=== PATIENT | female | born 2000 | race Caucasian/White ===

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

== ENCOUNTER 2021-01-16 08:21 | Emergency (ER) | payer BC, MEDICAID ==
[2021-01-16] MEDS ORDERED: Sodium Chloride 0.9% 2.5 ML Syringe FLUSH PRN (08:45)
[2021-01-16] MEDS ORDERED: Sodium Chloride 0.9% 10 ML Syringe FLUSH PRN (08:45)
[2021-01-16] MEDS ORDERED: Lactated Ringers 1,000 ML IV ONE (08:46)
--- NOTE | 2021-01-16 08:47 | EDM.PDOC ---
ED HPI GENERAL MEDICAL PROBLEM - General Chief Complaint: General Stated Complaint: POSSIBLE SEIZURE Time Seen by Provider: 01/16/21 08:26 - History of Present Illness INITIAL COMMENTS - FREE TEXT/NARRATIVE: 20-year-old female with a very medically complex history including premature physiologic aging, seizure disorder, and other medical problems who is presenting with lethargy. Mom reports that over the last few weeks they have noticed a decline in her behavior she started to develop significant sundowning. A couple weeks ago the patient had to be restarted on Resporal in the evenings to help with worsening sleep wake cycle reversal and disorientation agitation and aggression. She typically is at her best in the morning. Last week she was able to go to high school 3 days. Mom also notes that her gait has worsened substantially over the last few weeks. Her baseline mental function is that of approximately a 10-year-old she can speak if she chooses to she can also sign. Mom noticed over this past weekend that she has not been at her mental baseline she has been hard to keep awake and she has been more lethargic than normal. No fevers no vomiting. Patient has not had a bowel movement in the last 2 days but that is not unusual for her she does often go 48 to 72 hours between bowel movements. She is on a stool softener for this. - Related Data Allergies Allergy/AdvReac Type Severity Reaction Status Date / Time adhesive Allergy Rash Verified 01/16/21 08:33 Home Meds: Home Meds ALPRAZolam [Xanax] 0.05 mg PO ASDIRECTED PRN 07/15/15 [History] guanFACINE HCl [Intuniv] 2 mg PO DAILY 07/15/15 [History] lamoTRIgine [Lamictal] 350 mg PO BID 07/15/15 [History] EPINEPHrine [Epipen 2-Dayron] 1 injection INJECT ASDIRECTED PRN 09/20/15 [History] Gamma-Aminobutyric Acid [Aminobutyric Acid] 12 gram SQ ASDIRECTED 09/20/15 [History] diazePAM [Diastat Rectal Gel] 5 mg RECTAL ASDIRECTED PRN 09/20/15 [History] metFORMIN HCl [Metformin HCl] 1,000 mg PO BID 09/20/15 [History] QUEtiapine [SEROquel] 150 mg PO BEDTIME 02/01/16 [History] Multivit,Calc,Mins/Iron/Folic [Women's Daily Formula Caplet] 2 each PO DAILY 09/21/16 [History] PARoxetine HCL [Paroxetine HCl] 40 mg PO DAILY 09/21/16 [History] Ubidecarenone [COQ-10] 30 mg PO DAILY 09/21/16 [History] Norgestimate-Ethinyl Estradiol [Ortho Tri-Cyclen Lo Tablet] 1 tab PO DAILY 05/15/18 [History] LORazepam [Ativan] 1 mg PO ASDIRECTED PRN 09/21/20 [History] Lubiprostone [Amitiza] 8 mg PO BID 09/21/20 [History] Gabapentin [Neurontin] 300 mg PO TID 01/16/21 [History] risperiDONE [Risperdal] 2 mg PO DAILY 01/16/21 [History] Past Medical History HEENT History: Reports: Other (See Below) Other HEENT History: eye surgery 2 times Cardiovascular History: Reports: None Respiratory History: Reports: Asthma Other Respiratory History: allergy induced asthma Gastrointestinal History: Reports: Chronic Constipation, GERD Other Gastrointestinal History: Fissures Genitourinary History: Reports: Other (See Below) Other Genitourinary History: bilateral ovarian surgery [employer] History: Reports: Other (See Below) Other [employer] History: [place] of ovaries, oophorectomy Musculoskeletal History: Reports: Other (See Below) Other Musculoskeletal History: mulitple lower leg surgery Neurological History: Reports: Seizure, Other (See Below) Other Neuro History: focal epilepsy Psychiatric History: Reports: ADHD, Anxiety, Autism, Bipolar, Other (See Below) Other Psychiatric History: "Cannot diagnose, but suspect depression" per mother Jojo Endocrine/Metabolic History: Reports: Other (See Below) Other Endocrine/Metabolic History: Mother reports "Metformin for Hormone treatment" Hematologic History: Reports: None Immunologic History: Reports: Immunosuppression, Other (See Below) Other Immunologic History: Gammagard injection weekly Sundays Oncologic (Cancer) History: Reports: None Dermatologic History: Reports: None - Infectious Disease History Infectious Disease History: Reports: None - Past Surgical History HEENT Surgical History: Reports: None Cardiovascular Surgical History: Reports: None Respiratory Surgical History: Reports: None GI Surgical History: Reports: Appendectomy, Other (See Below) Other GI Surgeries/Procedures: exploratory sugery Female Surgical History: Reports: Other (See Below) Other Female Surgeries/Procedures: bilateral ovaries removed, ovarian cyst removal at Endocrine Surgical History: Reports: None Neurological Surgical History: Reports: None Musculoskeletal Surgical History: Reports: Other (See Below) Other Musculoskeletal Surgeries/Procedures:: plate i[ins removed from right and plate in hip and 5-6 screws at knee on left, bob of the patella on bilat knees Oncologic Surgical History: Reports: None Dermatological Surgical History: Reports: None Social & Family History - Family History Family Medical History: No Pertinent Family History - Tobacco Use Tobacco Use Status *Q: Never Tobacco User - Caffeine Use Caffeine Use: Reports: None - Recreational Drug Use Recreational Drug Use: No ED ROS GENERAL - Review of Systems Review Of Systems: See Below Free Text/Narrative/Comment: General: No fever. Skin: No rash. Eyes: No vision problems. Neck: No neck stiffness. Respiratory: No cough Gastrointestinal: No nausea, vomiting or abdominal pain. Urinary: No hematuria Musculoskeletal: No myalgias/arthralgias. Neurologic: Per HPI ED EXAM, GENERAL - Physical Exam Exam: See Below Free Text/Narrative:: General Appearance: No acute distress, appears comfortable HEENT: atraumatic, sclera anicteric, mucous membranes very dry Neck: Normal range of motion Chest and Lungs: Bilateral breath sounds, clear to auscultation Cardiovascular: Tachycardic rate regular rhythm intact distal perfusion Abdomen: Soft, non-tender Musculoskeletal: No edema or tenderness, bilateral leg splints in place Neurologic: Patient appears tired but awake she will not speak but appears to understand me she signed yes when asked if I could listen to her heart and lungs. She followed commands to lay back in the bed for an abdominal exam. She moves all 4 extremities she is looking around the room. pt was able to transfer to the bed from the chair with minimal assistance, gait testing titus. Psychiatric: cooperative Course - Vital Signs Last Recorded V/S: Last Vital Signs Temp 97.6 F 01/16/21 08:33 Pulse 115 H 01/16/21 09:59 Resp 30 H 01/16/21 09:28 BP 141/85 H 01/16/21 09:28 Pulse Ox 95 01/16/21 09:28 - Orders/Labs/Meds Orders: Active Orders 24 hr Category Date Time Status Heparin Sodium [Heparin Lock Flush 100 Units/ML] Med 01/16/21 09:21 Active 500 units FLUSH ASDIRECTED PRN Sodium Chloride 0.9% [Saline Flush] Med 01/16/21 08:45 Active 10 ml FLUSH ASDIRECTED PRN Sodium Chloride 0.9% [Saline Flush] Med 01/16/21 08:45 Active 2.5 ml FLUSH ASDIRECTED PRN Saline Lock Insert [OM.PC] Stat Oth 01/16/21 08:45 Ordered Medication Orders Heparin Sodium (Porcine) (Heparin Lock Flush 100 Units/Ml) 500 units FLUSH ASDIRECTED PRN PRN Reason: Heparin Lock Last Admin: 01/16/21 09:47 Dose: 500 units Documented by: [id number] Sodium Chloride (Saline Flush) 10 ml FLUSH ASDIRECTED PRN PRN Reason: Keep Vein Open Last Admin: 01/16/21 09:09 Dose: 10 ml Documented by: [email or web address] Sodium Chloride (Saline Flush) 2.5 ml FLUSH ASDIRECTED PRN PRN Reason: Keep Vein Open Last Admin: 01/16/21 09:09 Dose: 2.5 ml Documented by: [email or web address] Labs: Laboratory Tests 01/16/21 01/16/21 01/16/21 Range/Units 09:05 09:05 09:05 WBC 9.62 (4.0-11.0) K/uL RBC 4.54 (4.30-5.90) M/uL Hgb 13.3 (12.0-16.0) g/dL Hct 40.8 (36.0-46.0) % MCV 89.9 (80.0-98.0) fL MCH 29.3 (27.0-32.0) pg MCHC 32.6 (31.0-37.0) g/dL RDW Std Deviation 47.2 (28.0-62.0) fl RDW Coeff of Chen[place] 15 (11.0-15.0) % Plt Count 330 (150-400) K/uL MPV 8.30 (7.40-12.00) fL Neut % (Auto) 78.0 (48.0-80.0) % Lymph % (Auto) 16.3 (16.0-40.0) % [place] % (Auto) 5.0 (0.0-15.0) % Eos % (Auto) 0.5 (0.0-7.0) % Baso % (Auto) 0.2 (0.0-1.5) % Neut # (Auto) 7.5 H (1.4-5.7) K/uL Lymph # (Auto) 1.6 (0.6-2.4) K/uL [place] # (Auto) 0.5 (0.0-0.8) K/uL Eos # (Auto) 0.1 (0.0-0.7) K/uL Baso # (Auto) 0.0 (0.0-0.1) K/uL Nucleated RBC % 0.0 /100WBC Nucleated RBCs # 0 K/uL Lactate 1.8 (0.20-2.00) mmol/L Sodium 138 (136-145) mmol/L Potassium 4.4 (3.5-5.1) mmol/L Chloride 100 (98-107) mmol/L Carbon Dioxide 27.1 (21.0-32.0) mmol/L BUN 16 (7.0-18.0) mg/dL Creatinine 0.8 (0.6-1.0) mg/dL Est Cr Clr Drug Dosing 81.24 mL/min Estimated GFR (MDRD) > 60.0 ml/min Glucose 91 (74-106) mg/dL Calcium 9.5 (8.5-10.1) mg/dL Magnesium 2.0 (1.8-2.4) mg/dL Total Bilirubin 0.1 L (0.2-1.0) mg/dL AST 16 (15-37) IU/L ALT 21 (14-63) IU/L Alkaline Phosphatase 101 (46-116) U/L Total Protein 7.8 (6.4-8.2) g/dL Albumin 3.0 L (3.4-5.0) g/dL Globulin 4.8 H (2.6-4.0) g/dL Albumin/Globulin Ratio 0.6 L (0.9-1.6) Urine Color Urine Appearance Urine pH (5.0-8.0) Ur Specific [place] (1.001-1.035) Urine Protein (NEGATIVE) mg/dL Urine Glucose (UA) (NEGATIVE) mg/dL Urine Ketones (NEGATIVE) mg/dL Urine Occult Blood (NEGATIVE) Urine Nitrite (NEGATIVE) Urine Bilirubin (NEGATIVE) Urine Urobilinogen (<2.0) EU/dL Ur Leukocyte Esterase (NEGATIVE) Urine RBC (0-2/HPF) Urine WBC (0-5/HPF) Ur Epithelial Cells (NONE-FEW) Urine Bacteria (NEGATIVE) Urine Mucus (NONE-MOD) 01/16/21 Range/Units 09:16 WBC (4.0-11.0) K/uL RBC (4.30-5.90) M/uL Hgb (12.0-16.0) g/dL Hct (36.0-46.0) % MCV (80.0-98.0) fL MCH (27.0-32.0) pg MCHC (31.0-37.0) g/dL RDW Std Deviation (28.0-62.0) fl RDW Coeff of [place] (11.0-15.0) % Plt Count (150-400) K/uL MPV (7.40-12.00) fL Neut % (Auto) (48.0-80.0) % Lymph % (Auto) (16.0-40.0) % [place] % (Auto) (0.0-15.0) % Eos % (Auto) (0.0-7.0) % Baso % (Auto) (0.0-1.5) % Neut # (Auto) (1.4-5.7) K/uL Lymph # (Auto) (0.6-2.4) K/uL [place] # (Auto) (0.0-0.8) K/uL Eos # (Auto) (0.0-0.7) K/uL Baso # (Auto) (0.0-0.1) K/uL Nucleated RBC % /100WBC Nucleated RBCs # K/uL Lactate (0.20-2.00) mmol/L Sodium (136-145) mmol/L Potassium (3.5-5.1) mmol/L Chloride (98-107) mmol/L Carbon Dioxide (21.0-32.0) mmol/L BUN (7.0-18.0) mg/dL Creatinine (0.6-1.0) mg/dL Est Cr Clr Drug Dosing mL/min Estimated GFR (MDRD) ml/min Glucose (74-106) mg/dL Calcium (8.5-10.1) mg/dL Magnesium (1.8-2.4) mg/dL Total Bilirubin (0.2-1.0) mg/dL AST (15-37) IU/L ALT (14-63) IU/L Alkaline Phosphatase (46-116) U/L Total Protein (6.4-8.2) g/dL Albumin (3.4-5.0) g/dL Globulin (2.6-4.0) g/dL Albumin/Globulin Ratio (0.9-1.6) Urine Color YELLOW Urine Appearance CLEAR Urine pH 6.0 (5.0-8.0) Ur Specific [place] 1.025 (1.001-1.035) Urine Protein 100 H (NEGATIVE) mg/dL Urine Glucose (UA) NEGATIVE (NEGATIVE) mg/dL Urine Ketones NEGATIVE (NEGATIVE) mg/dL Urine Occult Blood LARGE H (NEGATIVE) Urine Nitrite NEGATIVE (NEGATIVE) Urine Bilirubin NEGATIVE (NEGATIVE) Urine Urobilinogen 0.2 (<2.0) EU/dL Ur Leukocyte Esterase NEGATIVE (NEGATIVE) Urine RBC 30-35 (0-2/HPF) Urine WBC 0-2 (0-5/HPF) Ur Epithelial Cells FEW (NONE-FEW) Urine Bacteria FEW (NEGATIVE) Urine Mucus LIGHT (NONE-MOD) Meds: Medications Generic Name Dose Route Start Last Admin Trade Name Ngoc PRN Reason Stop Dose Admin Heparin Sodium (Porcine) 500 units 01/16/21 09:21 01/16/21 09:47 Heparin Lock Flush 100 Units/Ml FLUSH 500 units ASDIRECTED PRN Administration Heparin Lock Sodium Chloride 10 ml 01/16/21 08:45 01/16/21 09:09 Saline Flush FLUSH 10 ml ASDIRECTED PRN Administration Keep Vein Open Sodium Chloride 2.5 ml 01/16/21 08:45 01/16/21 09:09 Saline Flush FLUSH 2.5 ml ASDIRECTED PRN Administration Keep Vein Open Discontinued Medications Generic Name Dose Route Start Last Admin Trade Name Ngoc PRN Reason Stop Dose Admin Lactated Ringer's 1,000 mls @ 999 mls/hr 01/16/21 08:46 01/16/21 09:09 Ringers, Lactated IV 01/16/21 09:46 500 mls/hr .BOLUS ONE Infusion Departure - Departure Time of Disposition: 11:06 Disposition: Home, Self-Care 01 Condition: Good Clinical Impression: Altered mental status, Dehydration - Discharge Information *PRESCRIPTION DRUG MONITORING PROGRAM REVIEWED*: Not Applicable *COPY OF PRESCRIPTION DRUG MONITORING REPORT IN PATIENT SARA: Not Applicable Instructions: Rehydration, Adult Referrals: Gogo Weller DO [Primary Care Provider] - Forms: ED Department Discharge Additional Instructions: As we discussed to the CT scan of Nancy's brain was normal. Her blood work was also reassuring she had a normal white blood cell count of 9 her blood chemistries were normal without signs of kidney dysfunction or electrolyte abnormality. That said I do think she is mildly dehydrated her heart rate improved with the 1 L of IV fluid here. She may benefit from another bag of IV fluids given slowly over the course of the day and so for this reason we are leaving her chest port accessed. I encourage you to follow-up with her and his primary care provider and neurologist and other specialists to continue the outpatient work-up to address her decline. If Nancy has a sudden change or develops any other new issues that concern you, you are always welcome and encouraged to return to the emergency room. The following information is given to patients seen in the emergency department who are being discharged to home. This information is to outline your options for follow-up care. We provide all patients seen in our emergency department with a follow-up referral. The need for follow-up, as well as the timing and circumstances, are variable depending upon the specifics of your emergency department visit. If you don't have a primary care physician on staff, we will provide you with a referral. We always advise you to contact your personal physician following an emergency department visit to inform them of the circumstance of the visit and for follow-up with them and/or the need for any referrals to a consulting specialist. The emergency department will also refer you to a specialist when appropriate. This referral assures that you have the opportunity for follow-up care with a specialist. All of these measure are taken in an effort to provide you with optimal care, which includes your follow-up. Under all circumstances we always encourage you to contact your private physician who remains a resource for coordinating your care. When calling for follow-up care, please make the office aware that this follow-up is from your recent emergency room visit. If for any reason you are refused follow-up, please contact the [facility] Emergency Department at and asked to speak to the emergency department charge nurse. Sepsis Event Note (ED) - Evaluation Sepsis Screening Result: No Definite Risk - Focused Exam Vital Signs: Vital Signs Temp Pulse Resp BP Pulse Ox 01/16/21 09:59 115 H 01/16/21 09:28 122 H 30 H 141/85 H 95 01/16/21 08:33 97.6 F 138 H 18 139/87 98 - My Orders Last 24 Hours: My Active Orders 01/16/21 08:45 Sodium Chloride 0.9% [Saline Flush] 10 ml FLUSH ASDIRECTED PRN Sodium Chloride 0.9% [Saline Flush] 2.5 ml FLUSH ASDIRECTED PRN Saline Lock Insert [OM.PC] Stat 01/16/21 09:21 Heparin Sodium [Heparin Lock Flush 100 Units/ML] 500 units FLUSH ASDIRECTED PRN - Assessment/Plan Last 24 Hours: My Active Orders 01/16/21 08:45 Sodium Chloride 0.9% [Saline Flush] 10 ml FLUSH ASDIRECTED PRN Sodium Chloride 0.9% [Saline Flush] 2.5 ml FLUSH ASDIRECTED PRN Saline Lock Insert [OM.PC] Stat 01/16/21 09:21 Heparin Sodium [Heparin Lock Flush 100 Units/ML] 500 units FLUSH ASDIRECTED PRN Assessment:: Medically complex 20-year-old female presenting with lethargy. Multiple etiologies need to be considered. Patient is on a number of potentially sedating medications. However none of these changes are brand-new. Patient is somewhat tachycardic she appears dehydrated electrolyte disturbance is possible renal insufficiency is possible sepsis is possible and screening lactate is been ordered. Occult infective process certainly needs to be considered including UTI and cath UA will be obtained. Chest x-ray as well to evaluate for occult infiltrate. Patient had a normal ammonia and normal TSH on lab work done on January 05 I would not repeat those at this time. But CBC CMP urinalysis and lactate ordered without blood cultures if there is any sign of infection. No vomiting abdominal exam very benign I do not think imaging of her abdomen pelvis is necessary at this point. More frequent absence seizure's is certainly a consideration but there is been no witnessed tonic-clonic activity per mom. IV fluid has been ordered given her tachycardia and clinical dehydration. Patient is tachycardic she has dry mucous membranes these are concerning for dehydration and so IV fluid hydration has been ordered. 1000: HR improving with IVF currently around 115. Labs are good, now UTI, stable protein at 100, WBC normal, renal function and electrolytes normal. Given this lack of cause for AMS and after discussion with patient's mother will proceed with head CT. 1100: Patient's head CT is normal. Patient's heart rate and blood pressure are normal. Is a very minimal tachycardia she may have some very mild ongoing dehydration. I do long conversation with the patient's mother regarding disposition. She has all of the supplies to hydrate the patient at home. At this point I do not have a clinical concern for acute infective process or other acute medical emergency. This could be the natural progression of her disease or the could be another more subspecialty related process. That said given her normal lab results the reassuring vital signs I do not think admission would provide much of a benefit. Patient's mom is comfortable taking the patient home we will leave the port accessed so that she can continue hydration at home I think this is safe and appropriate. She will contact her patient's primary care provider as well as her neurologist and they will continue the outpatient work- up which has been ongoing. I reinforced that should the patient's mother become concerned or any other new concerns develop she is always welcome to return to the ER and she expresses understanding.
[2021-01-16 09:45] LABS: BLOOD UREA NITROGEN,BUN 16 mg/dL (7.0-18.0); CARBON DIOXIDE,CO2 27.1 mmol/L (21.0-32.0); CHLORIDE,CL 100 mmol/L (98-107); GLUCOSE RANDOM 91 mg/dL (74-106); POTASSIUM,K 4.4 mmol/L (3.5-5.1); SODIUM,NA 138 mmol/L (136-145)
--- NOTE | 2021-01-16 09:47 | CR ---
HISTORY: Shortness of breath. COMPARISON: 12/08/2019. TECHNIQUE: Chest one-view portable. FINDINGS: There is a left subclavian Port-A-Cath, with its tip in the distal SVC. Low lung volumes. There is no acute airspace disease. There is no pneumothorax. The central airway is normal. The osseous structures are intact. IMPRESSION: No acute airspace disease. Dictated by Mian Combs MD @ Jan 16 2021 9:44AM Signed by Dr. Mian Combs @ Jan 16 2021 9:46AM
--- NOTE | 2021-01-16 10:44 | CT ---
Indication: SEIZURES. Autistic. AMS Technique: CT of the head without contrast. Coronal and sagittal reformats. Bone and soft tissue windows. Comparison: No prior studies available for comparison at this institution. Findings: No acute intracranial hemorrhage or extra-axial collection. No evidence of acute cortical infarction. No mass effect or midline shift. Normal cerebral volume. The ventricles are normal in size, shape and contour. There is normal manzano and white matter differentiation. The orbital contents are normal. No calvarial fractures. No lytic or sclerotic osseous lesions within the calvarium or skull base. Scalp and other imaged soft tissue structures are normal. Mastoid air cells are clear. Moderate mucosal thickening in the left sphenoid sinus. The nasal septum is deviated to the left. Impression: 1. No acute intracranial abnormality. 2. Moderate mucosal thickening in the left sphenoid sinus. Please note that all CT scans at this facility use dose modulation, iterative reconstruction, and/or weight-based dosing when appropriate to reduce radiation dose to as low as reasonably achievable. Dictated by Martell Osman MD @ Jan 16 2021 10:38AM Signed by Dr. Martell Osman @ Jan 16 2021 10:41AM
[2021-01-16 11:24] VITALS: BP 134/89; PULSE 111
== END 2021-01-16 11:15 | disposition home or self-care (01) ==
LOC: MW.ED 08:21
DX: E86.0 Dehydration (principal); J45.909 Unspecified asthma, uncomplicated; F84.0 Autistic disorder; Z91.048 Other nonmedicinal substance allergy status; Z79.899 Other long term (current) drug therapy
CPT/HCPCS: 36415; 36556; 70450; 71045; 80053; 81001; 83605; 83735; 85025; 99285; J7120; 99283; J1642

== ENCOUNTER 2021-01-22 12:54 | Emergency (ER) | payer BC, MEDICAID ==
--- NOTE | 2021-01-22 12:56 | EDM.PDOC ---
ED HPI GENERAL MEDICAL PROBLEM - General Stated Complaint: EMS SIEZURES AND HEART RATE Time Seen by Provider: 01/22/21 12:56 Source of Information: Reports: Patient, EMS History Limitations: Reports: No Limitations - History of Present Illness INITIAL COMMENTS - FREE TEXT/NARRATIVE: 20-year-old female with history of tonic-clonic seizure, absence seizure, CVID, autism, legally blind, hypotonia, cognitive impairment was brought in by ambulance for 3 episodes of absence seizure today followed by decreased LOC. Mom states that she is acting subdued. No Diastat or Ativan was given today. EMS noted sinus tachycardia with heart rate of 150s. She has a follow-up appointment with Dr. Darnell on Saturday. History is limited secondary to cognitive impairment. ROS: A 10-point review of systems, other than pertinent positives and negatives as stated per HPI, is otherwise negative Past medical history: No additional pertinent history Past Surgical history: No additional pertinent history Social history: No additional pertinent history Family history: No additional pertinent history PHYSICAL EXAM General: No distress HEENT: dry mucous membrane Neck: supple, no meningismus, no Kernig or Brudzinski Cardiac: S1S2 tachycardia, left chest port Respiratory: CTAB, no crackles or rales, no wheezing Abdomen: Soft, nontender, no rebound or guarding, nondistended, no pulsatile mass. Back: nontender Musculoskeletal: NVI distally, no deformity Neuro: No focal deficits - Related Data Allergies Allergy/AdvReac Type Severity Reaction Status Date / Time adhesive Allergy Rash Verified 01/22/21 14:13 Home Meds: Home Meds ALPRAZolam [Xanax] 0.05 mg PO ASDIRECTED PRN 07/15/15 [History] guanFACINE HCl [Intuniv] 2 mg PO DAILY 07/15/15 [History] lamoTRIgine [Lamictal] 350 mg PO BID 07/15/15 [History] EPINEPHrine [Epipen 2-Dayron] 1 injection INJECT ASDIRECTED PRN 11/03/15 [History] Gamma-Aminobutyric Acid [Aminobutyric Acid] 12 gram SQ ASDIRECTED 09/20/15 [History] diazePAM [Diastat Rectal Gel] 5 mg RECTAL ASDIRECTED PRN 09/20/15 [History] metFORMIN HCl [Metformin HCl] 1,000 mg PO BID 09/20/15 [History] QUEtiapine [SEROquel] 150 mg PO BEDTIME 02/01/16 [History] Multivit,Calc,Mins/Iron/Folic [Women's Daily Formula Caplet] 2 each PO DAILY 09/21/16 [History] PARoxetine HCL [Paroxetine HCl] 40 mg PO DAILY 09/21/16 [History] Ubidecarenone [COQ-10] 30 mg PO DAILY 09/21/16 [History] Norgestimate-Ethinyl Estradiol [Ortho Tri-Cyclen Lo Tablet] 1 tab PO DAILY 05/15/18 [History] LORazepam [Ativan] 1 mg PO ASDIRECTED PRN 09/21/20 [History] Lubiprostone [Amitiza] 8 mg PO BID 09/21/20 [History] Gabapentin [Neurontin] 300 mg PO TID 01/16/21 [History] risperiDONE [Risperdal] 2 mg PO DAILY 01/16/21 [History] Past Medical History HEENT History: Reports: Other (See Below) Other HEENT History: eye surgery 2 times Cardiovascular History: Reports: None Respiratory History: Reports: Asthma Other Respiratory History: allergy induced asthma Gastrointestinal History: Reports: Chronic Constipation, GERD Other Gastrointestinal History: Fissures Genitourinary History: Reports: Other (See Below) Other Genitourinary History: bilateral ovarian surgery TOP SPOTTER History: Reports: Other (See Below) Other TOP SPOTTER History: Debaulking of ovaries, oophorectomy Musculoskeletal History: Reports: Other (See Below) Other Musculoskeletal History: mulitple lower leg surgery Neurological History: Reports: Seizure, Other (See Below) Other Neuro History: focal epilepsy Psychiatric History: Reports: ADHD, Anxiety, Autism, Bipolar, Other (See Below) Other Psychiatric History: "Cannot diagnose, but suspect depression" per mother Jojo Endocrine/Metabolic History: Reports: Other (See Below) Other Endocrine/Metabolic History: Mother reports "Metformin for Hormone tr eatment" Hematologic History: Reports: None Immunologic History: Reports: Immunosuppression, Other (See Below) Other Immunologic History: Gammagard injection weekly Sundays Oncologic (Cancer) History: Reports: None Dermatologic History: Reports: None - Infectious Disease History Infectious Disease History: Reports: None - Past Surgical History HEENT Surgical History: Reports: None Cardiovascular Surgical History: Reports: None Respiratory Surgical History: Reports: None GI Surgical History: Reports: Appendectomy, Other (See Below) Other GI Surgeries/Procedures: exploratory sugery Female Surgical History: Reports: Other (See Below) Other Female Surgeries/Procedures: bilateral ovaries removed, ovarian cyst removal at Endocrine Surgical History: Reports: None Neurological Surgical History: Reports: None Musculoskeletal Surgical History: Reports: Other (See Below) Other Musculoskeletal Surgeries/Procedures:: plate i[ins removed from right and plate in hip and 5-6 screws at knee on left, bob of the patella on bilat knees Oncologic Surgical History: Reports: None Dermatological Surgical History: Reports: None Social & Family History - Family History Family Medical History: No Pertinent Family History - Caffeine Use Caffeine Use: Reports: None ED ROS GENERAL - Review of Systems Review Of Systems: See Below (see dictation) ED EXAM, GENERAL - Physical Exam Exam: See Below (see dictation) #1 Interpretation EKG Interpretation Comments: Heart rate = 135 bpm, sinus tachycardia normal QRS interval, no STEMI. EKG and rhythm strip interpreted by me at 1313 Course - Vital Signs Last Recorded V/S: Last Vital Signs Temp 98.2 F 01/22/21 12:56 Pulse 124 H 01/22/21 15:30 Resp 16 01/22/21 15:30 BP 135/82 01/22/21 15:30 Pulse Ox 97 01/22/21 15:30 - Orders/Labs/Meds Orders: Active Orders 24 hr Category Date Time Status Blood Pressure Mgt: Sepsis [RC] Q15MX2 Care 01/22/21 15:41 Active Cardiac Monitoring [RC] . DIRECTED Care 01/22/21 13:13 Active EKG Documentation Completion [RC] STAT Care 01/22/21 13:14 Active Pulse Oximetry [RC] ASDIRECTED Care 01/22/21 13:13 Active CULTURE BLOOD [BC] Stat Lab 01/22/21 15:56 Received CULTURE BLOOD [BC] Stat Lab 01/22/21 16:00 Received Sodium Chloride 0.9% [Saline Flush] Med 01/22/21 13:13 Active 10 ml FLUSH ASDIRECTED PRN Sodium Chloride 0.9% [Saline Flush] Med 01/22/21 13:13 Active 2.5 ml FLUSH ASDIRECTED PRN Blood Culture x2 Reflex Set [OM.PC] Stat Oth 01/22/21 15:40 Ordered Saline Lock Insert [OM.PC] Stat Ot 01/22/21 13:13 Ordered Medication Orders Sodium Chloride (Saline Flush) 10 ml FLUSH ASDIRECTED PRN PRN Reason: Keep Vein Open Last Admin: 01/22/21 14:14 Dose: 10 ml Documented by: NELSY Sodium Chloride (Saline Flush) 2.5 ml FLUSH ASDIRECTED PRN PRN Reason: Keep Vein Open Last Admin: 01/22/21 14:14 Dose: 2.5 ml Documented by: NELSY Labs: Laboratory Tests 01/22/21 01/22/21 01/22/21 Range/Units 14:00 14:00 14:00 WBC 6.89 (4.0-11.0) K/uL RBC 4.39 (4.30-5.90) M/uL Hgb 12.7 (12.0-16.0) g/dL Hct 39.5 (36.0-46.0) % MCV 90.0 (80.0-98.0) fL MCH 28.9 (27.0-32.0) pg MCHC 32.2 (31.0-37.0) g/dL RDW Std Deviation 48.8 (28.0-62.0) fl RDW Coeff of [place] 15 (11.0-15.0) % Plt Count 332 (150-400) K/uL MPV 8.50 (7.40-12.00) fL Neut % (Auto) 61.7 (48.0-80.0) % Lymph % (Auto) 32.5 (16.0-40.0) % [place] % (Auto) 4.8 (0.0-15.0) % Eos % (Auto) 0.9 (0.0-7.0) % Baso % (Auto) 0.1 (0.0-1.5) % Neut # (Auto) 4.3 (1.4-5.7) K/uL Lymph # (Auto) 2.2 (0.6-2.4) K/uL Pike # (Auto) 0.3 (0.0-0.8) K/uL Eos # (Auto) 0.1 (0.0-0.7) K/uL Baso # (Auto) 0.0 (0.0-0.1) K/uL Nucleated RBC % 0.0 /100WBC Nucleated RBCs # 0 K/uL Lactate 3.5 H* (0.20-2.00) mmol/L Sodium 139 (136-145) mmol/L Potassium 4.5 (3.5-5.1) mmol/L Chloride 103 (98-107) mmol/L Carbon Dioxide 24.8 (21.0-32.0) mmol/L BUN 15 (7.0-18.0) mg/dL Creatinine 0.9 (0.6-1.0) mg/dL Est Cr Clr Drug Dosing TNP Estimated GFR (MDRD) > 60.0 ml/min Glucose 99 (74-106) mg/dL POC Glucose (60-110) mg/dL Calcium 8.7 (8.5-10.1) mg/dL Phosphorus 3.2 (2.6-4.7) mg/dL Magnesium 1.9 (1.8-2.4) mg/dL Total Bilirubin 0.2 (0.2-1.0) mg/dL AST 46 H (15-37) IU/L ALT 51 (14-63) IU/L Alkaline Phosphatase 149 H (46-116) U/L Creatine Kinase 14 L (26-308) U/L Total Protein 7.6 (6.4-8.2) g/dL Albumin 2.8 L (3.4-5.0) g/dL Globulin 4.8 H (2.6-4.0) g/dL Albumin/Globulin Ratio 0.6 L (0.9-1.6) Urine Color Urine Appearance Urine pH (5.0-8.0) Ur Specific [place] (1.001-1.035) Urine Protein (NEGATIVE) mg/dL Urine Glucose (UA) (NEGATIVE) mg/dL Urine Ketones (NEGATIVE) mg/dL Urine Occult Blood (NEGATIVE) Urine Nitrite (NEGATIVE) Urine Bilirubin (NEGATIVE) Urine Urobilinogen (<2.0) EU/dL Ur Leukocyte Esterase (NEGATIVE) Urine RBC (0-2/HPF) Urine WBC (0-5/HPF) Ur Epithelial Cells (NONE-FEW) Urine Bacteria (NEGATIVE) 01/22/21 01/22/21 01/22/21 Range/Units 14:00 14:13 18:09 WBC (4.0-11.0) K/uL RBC (4.30-5.90) M/uL Hgb (12.0-16.0) g/dL Hct (36.0-46.0) % MCV (80.0-98.0) fL MCH (27.0-32.0) pg MCHC (31.0-37.0) g/dL RDW Std Deviation (28.0-62.0) fl RDW Coeff of [place] (11.0-15.0) % Plt Count (150-400) K/uL MPV (7.40-12.00) fL Neut % (Auto) (48.0-80.0) % Lymph % (Auto) (16.0-40.0) % Pike % (Auto) (0.0-15.0) % Eos % (Auto) (0.0-7.0) % Baso % (Auto) (0.0-1.5) % Neut # (Auto) (1.4-5.7) K/uL Lymph # (Auto) (0.6-2.4) K/uL Pike # (Auto) (0.0-0.8) K/uL Eos # (Auto) (0.0-0.7) K/uL Baso # (Auto) (0.0-0.1) K/uL Nucleated RBC % /100WBC Nucleated RBCs # K/uL Lactate 0.7 (0.20-2.00) mmol/L Sodium (136-145) mmol/L Potassium (3.5-5.1) mmol/L Chloride (98-107) mmol/L Carbon Dioxide (21.0-32.0) mmol/L BUN (7.0-18.0) mg/dL Creatinine (0.6-1.0) mg/dL Est Cr Clr Drug Dosing Estimated GFR (MDRD) ml/min Glucose (74-106) mg/dL POC Glucose 96 (60-110) mg/dL Calcium (8.5-10.1) mg/dL Phosphorus (2.6-4.7) mg/dL Magnesium (1.8-2.4) mg/dL Total Bilirubin (0.2-1.0) mg/dL AST (15-37) IU/L ALT (14-63) IU/L Alkaline Phosphatase (46-116) U/L Creatine Kinase (26-308) U/L Total Protein (6.4-8.2) g/dL Albumin (3.4-5.0) g/dL Globulin (2.6-4.0) g/dL Albumin/Globulin Ratio (0.9-1.6) Urine Color YELLOW Urine Appearance CLEAR Urine pH 6.5 (5.0-8.0) Ur Specific [place] 1.025 (1.001-1.035) Urine Protein 30 H (NEGATIVE) mg/dL Urine Glucose (UA) NEGATIVE (NEGATIVE) mg/dL Urine Ketones NEGATIVE (NEGATIVE) mg/dL Urine Occult Blood SMALL H (NEGATIVE) Urine Nitrite NEGATIVE (NEGATIVE) Urine Bilirubin NEGATIVE (NEGATIVE) Urine Urobilinogen 0.2 (<2.0) EU/dL Ur Leukocyte Esterase NEGATIVE (NEGATIVE) Urine RBC 2-4 (0-2/HPF) Urine WBC RARE (0-5/HPF) Ur Epithelial Cells FEW (NONE-FEW) Urine Bacteria FEW (NEGATIVE) Meds: Medications Generic Name Dose Route Start Last Admin Trade Name Fremarcial PRN Reason Stop Dose Admin Sodium Chloride 10 ml 01/22/21 13:13 01/22/21 14:14 Saline Flush FLUSH 10 ml ASDIRECTED PRN Administration Keep Vein Open Sodium Chloride 2.5 ml 01/22/21 13:13 01/22/21 14:14 Saline Flush FLUSH 2.5 ml ASDIRECTED PRN Administration Keep Vein Open Discontinued Medications Generic Name Dose Route Start Last Admin Trade Name Freq PRN Reason Stop Dose Admin Diphenhydramine HCl Confirm 01/22/21 17:56 01/22/21 18:09 Benadryl Administered 01/22/21 17:57 Not Given Dose 50 mg .ROUTE .STK-MED ONE Diphenhydramine HCl 50 mg 01/22/21 18:06 01/22/21 18:07 Benadryl IVPUSH 01/22/21 18:07 50 mg ONETIME ONE Administration Famotidine Confirm 01/22/21 17:56 01/22/21 18:09 Pepcid Administered 01/22/21 17:57 Not Given Dose 20 mg .ROUTE .STK-MED ONE Famotidine 20 mg 01/22/21 18:06 01/22/21 18:07 Pepcid IVPUSH 01/22/21 18:07 20 mg ONETIME ONE Administration Lactated Ringer's 1,000 mls @ 999 mls/hr 01/22/21 13:15 01/22/21 14:13 Ringers, Lactated IV 01/22/21 14:15 999 mls/hr STAT STA Administration Sodium Chloride 1,000 mls @ 999 mls/hr 01/22/21 15:40 01/22/21 16:03 Normal Saline IV 01/22/21 16:40 999 mls/hr STAT STA Administration Protocol Ceftriaxone Sodium 1 gm/ 100 mls @ 200 mls/hr 01/22/21 15:40 01/22/21 17:16 Sodium Chloride IV 01/22/21 16:09 Not Given STAT ONE Ceftriaxone Sodium/Dextrose Confirm 01/22/21 15:53 01/22/21 16:06 Rocephin In Dextrose,Iso-Osm 1 Gm/50 Ml Administered 01/22/21 15:54 Not Given Dose 50 mls @ as directed .ROUTE .STK-MED ONE Ceftriaxone Sodium/Dextrose 1 50 mls @ 100 mls/hr 01/22/21 17:09 01/22/21 17:12 gm/ Premix IV 01/22/21 17:38 100 mls/hr ONETIME ONE Administration Sodium Chloride 1,000 mls @ 999 mls/hr 01/22/21 17:11 01/22/21 17:12 Normal Saline IV 01/22/21 18:11 999 mls/hr .Bolus ONE Administration Lorazepam 1 mg 01/22/21 13:15 01/22/21 14:14 Ativan IVPUSH 01/22/21 13:16 1 mg ONETIME ONE Administration - Re-Assessments/Exams Free Text/Narrative Re-Assessment/Exam: 01/22/21 19:28 After IVF in the ER, she improved and is currently stable for discharge. I performed a repeat exam and did not appreciate new abnormal findings. Patient exhibits normal vital signs. Her tachycardia improved significantly. I advised the patient to return to the ER for reevaluation if symptoms worsened, including fever, worsening pain, or any other worrisome symptoms. I instructed the patient to follow up with their PCP and Dr. Dobbins within 2-3 days. MEDICAL DECISION MAKING: I reviewed the patients past medical records, lab and radiographic findings. I discussed the case with the patient. My differential diagnosis included: Seizure, dehydration. Patient initially demonstrated lactic acidosis likely secondary to seizure activity. After IV fluid hydration, lactic acidosis resolved, she has no fever or leukocytosis to suggest for infectious etiology. She feels much improved. Stable for outpatient follow-up for her PCP tomorrow and Dr. Darnell on Saturday as previously appointed. Departure - Departure Time of Disposition: 19:31 Disposition: Home, Self-Care 01 Condition: Good Clinical Impression: Dehydration, Absence seizure - Discharge Information *PRESCRIPTION DRUG MONITORING PROGRAM REVIEWED*: Not Applicable *COPY OF PRESCRIPTION DRUG MONITORING REPORT IN PATIENT SARA: Not Applicable Instructions: Seizure, Adult, [id number], Dehydration, Adult Referrals: Gogo Weller DO [Primary Care Provider] - 1 Day Kenia Darnell MD [Physician] - 1 Day Forms: ED Department Discharge Additional Instructions: The need for follow-up, as well as the timing and circumstances, are variable depending upon the specifics of your emergency department visit. If you don't have a primary care physician on staff, we will provide you with a referral. We always advise you to contact your personal physician following an emergency department visit to inform them of the circumstance of the visit and for follow-up with them and/or the need for any referrals to a consulting specialist. The emergency department will also refer you to a specialist when appropriate. This referral assures that you have the opportunity for follow-up care with a specialist. All of these measure are taken in an effort to provide you with o ptimal care, which includes your follow-up. Under all circumstances we always encourage you to contact your private physician who remains a resource for coordinating your care. When calling for follow-up care, please make the office aware that this follow-up is from your recent emergency room visit. If for any reason you are refused follow-up, please contact the [facility] Emergency Department at and asked to speak to the emergency department charge nurse. If you do not have a primary care doctor, please follow up with the clinics below within 3-5 days. [facility] - Primary Care [address] [place] [id number] [facility] [address] [place] [id number] Sepsis Event Note (ED) - Focused Exam Vital Signs: Vital Signs Temp Pulse Resp BP Pulse Ox 01/22/21 15:30 124 H 16 135/82 97 01/22/21 15:00 121 H 16 130/80 97 01/22/21 14:00 137 H 17 144/84 H 98 01/22/21 12:56 98.2 F 150 H 20 144/84 H 97 - My Orders Last 24 Hours: My Active Orders 01/22/21 13:13 Cardiac Monitoring [RC] . DIRECTED Pulse Oximetry [RC] ASDIRECTED Sodium Chloride 0.9% [Saline Flush] 10 ml FLUSH ASDIRECTED PRN Sodium Chloride 0.9% [Saline Flush] 2.5 ml FLUSH ASDIRECTED PRN Saline Lock Insert [OM.PC] Stat 01/22/21 13:14 EKG Documentation Completion [RC] STAT 01/22/21 15:40 Blood Culture x2 Reflex Set [OM.PC] Stat 01/22/21 15:41 Blood Pressure Mgt: Sepsis [RC] Q15MX2 01/22/21 15:56 CULTURE BLOOD [BC] Stat 01/22/21 16:00 CULTURE BLOOD [BC] Stat - Assessment/Plan Last 24 Hours: My Active Orders 01/22/21 13:13 Cardiac Monitoring [RC] . DIRECTED Pulse Oximetry [RC] ASDIRECTED Sodium Chloride 0.9% [Saline Flush] 10 ml FLUSH ASDIRECTED PRN Sodium Chloride 0.9% [Saline Flush] 2.5 ml FLUSH ASDIRECTED PRN Saline Lock Insert [OM.PC] Stat 01/22/21 13:14 EKG Documentation Completion [RC] STAT 01/22/21 15:40 Blood Culture x2 Reflex Set [OM.PC] Stat 01/22/21 15:41 Blood Pressure Mgt: Sepsis [] Q15MX2 01/22/21 15:56 CULTURE BLOOD [BC] Stat 01/22/21 16:00 CULTURE BLOOD [BC] Stat
[2021-01-22] MEDS ORDERED: Sodium Chloride 0.9% 10 ML Syringe FLUSH PRN (13:13)
[2021-01-22] MEDS ORDERED: Sodium Chloride 0.9% 2.5 ML Syringe FLUSH PRN (13:13)
[2021-01-22] MEDS ORDERED: Lactated Ringers 1,000 ML IV STA (13:15)
[2021-01-22] MEDS ORDERED: LORazepam 2 MG/ML SDV IVPUSH ONE (13:15)
[2021-01-22 14:32] LABS: BLOOD UREA NITROGEN,BUN 15 mg/dL (7.0-18.0); CARBON DIOXIDE,CO2 24.8 mmol/L (21.0-32.0); CHLORIDE,CL 103 mmol/L (98-107); GLUCOSE RANDOM 99 mg/dL (74-106); POTASSIUM,K 4.5 mmol/L (3.5-5.1); SODIUM,NA 139 mmol/L (136-145)
--- NOTE | 2021-01-22 15:09 | CT ---
Indication: 3 seizures today. Technique: Multiple contiguous axial images were obtained from the skullbase to the vertex without intravenous contrast enhancement. Please note that all CT scans at this facility use dose modulation, iterative reconstruction, and/or weight-based dosing when appropriate to reduce radiation dose to as low as reasonably achievable. Comparison: January 16, 2018. Findings: The ventricles are symmetric and normal in size and morphology. The basal cisterns are widely patent. No intra-axial or extra-axial hemorrhage is identified. No mass, mass effect or midline shift is seen. The bony calvarium is intact. The visualized paranasal sinuses and mastoid air cells are clear except for mucosal thickening is identified within the left sphenoid sinus. Impression: Left sphenoid sinus disease. No acute intracranial process. Please note that all CT scans at this facility use dose modulation, iterative reconstruction, and/or weight-based dosing when appropriate to reduce radiation dose to as low as reasonably achievable. Dictated by Paz Chavez MD @ Jan 22 2021 3:04PM Signed by Dr. Paz Chavez @ Jan 22 2021 3:06PM
--- NOTE | 2021-01-22 15:30 | CR ---
INDICATION: Seizure TECHNIQUE: Single view chest. Comparison chest x-ray 01/16/2021 FINDINGS: Low lung volumes. Left Port-A-Cath unchanged. Mild perihilar interstitial opacities. No effusion or pneumothorax. Impression: Low lung volumes with perihilar interstitial opacities. Part of this could be related to crowding of the bronchovascular structures. Findings could be related to mild pulmonary edema. Infectious inflammatory processes to include atypical infections. Dictated by Freida Rob MD @ Jan 22 2021 3:26PM Signed by Dr. Freida Rob @ Jan 22 2021 3:29PM
[2021-01-22] MEDS ORDERED: cefTRIAXone 1 GM in Sodium Chloride 0.9% 100 ML IV ONE (15:40)
[2021-01-22] MEDS ORDERED: Sodium Chloride 0.9% 1,000 ML IV STA (15:40)
[2021-01-22] MEDS ORDERED: cefTRIAXone 1 GM in Premix Bag 1 BAG IV ONE (17:09)
[2021-01-22] MEDS ORDERED: Sodium Chloride 0.9% 1,000 ML IV ONE (17:11)
[2021-01-22] MEDS ORDERED: Famotidine 20 MG/2 ML SDV ONE (17:56)
[2021-01-22] MEDS ORDERED: diphenhydrAMINE 50 MG/ML SDV ONE (17:56)
[2021-01-22] MEDS ORDERED: Famotidine 20 MG/2 ML SDV IVPUSH ONE (18:06)
[2021-01-22] MEDS ORDERED: diphenhydrAMINE 50 MG/ML SDV IVPUSH ONE (18:06)
[2021-01-23 00:18] VITALS: BP 138/106; PULSE 112
== END 2021-01-22 19:50 | disposition home or self-care (01) ==
LOC: MW.ED 12:54
DX: G40.A09 Absence epileptic syndrome, not intractable, without status epilepticus (principal); E86.0 Dehydration; R00.0 Tachycardia, unspecified; J45.909 Unspecified asthma, uncomplicated; Z91.048 Other nonmedicinal substance allergy status; Z79.899 Other long term (current) drug therapy
CPT/HCPCS: 36415; 70450; 71045; 80053; 81001; 82550; 82962; 83605; 83735; 84100; 85025; 87040; 93005; 96365; 96375; 99285; J0696; J1200; J2060; J3490; J7030; J7120; 93010; 99283

== ENCOUNTER 2021-02-17 19:12 | Emergency (ER) | payer BC, MEDICAID ==
[2021-02-17] MEDS ORDERED: Sodium Chloride 0.9% 1,000 ML IV ONE (19:20)
--- NOTE | 2021-02-17 19:52 | CR ---
Indication: Chest pain Technique: Chest 1 view Comparison: Chest x-ray 01/22/2021 Findings/Impression: Cardiovascular and mediastinum: Normal heart size with left-sided Port-A-Cath redemonstrated. Lungs and pleural space: Low lung volumes without pleural effusion or pneumothorax. No focal consolidation. Bones and soft tissues: No acute findings. Dictated by Jaime Hummel MD @ Feb 17 2021 7:50PM Signed by Dr. Jaime Hummel @ Feb 17 2021 7:51PM
[2021-02-17 21:17] LABS: BLOOD UREA NITROGEN,BUN 16 mg/dL (7.0-18.0); CARBON DIOXIDE,CO2 28.5 mmol/L (21.0-32.0); CHLORIDE,CL 103 mmol/L (98-107); GLUCOSE RANDOM 106 mg/dL (74-106); POTASSIUM,K 4.3 mmol/L (3.5-5.1); SODIUM,NA 140 mmol/L (136-145)
--- NOTE | 2021-02-18 00:05 | EDM.PDOC ---
ED HPI GENERAL MEDICAL PROBLEM - General Chief Complaint: Chest Pain Stated Complaint: CHEST PAIN Time Seen by Provider: 02/17/21 19:19 - History of Present Illness INITIAL COMMENTS - FREE TEXT/NARRATIVE: *All history is obtained from mother given the patient is nonverbal CHIEF COMPLAINT(S): Chest pain HISTORY OF PRESENT ILLNESS: This is a 20-year-old woman with a past medical history of autism, disorder of mitochondrial metabolism, functional urinary incontinence who comes to the emergency department with a chief complaint of chest pain. The mother states that she asked her earlier if she had chest pain and she signaled yes. She states that she has had chest pain and heart issues in the past but she has never had pain with tears. She states that other than her stating that she had some chest pain the patient has been tolerating p.o. without any shortness of breath. She denies any nausea or vomiting. She denies any increased or decreased urination. She denies any fevers or chills. She states that they recently had a Holter monitor in place because of tachycardia. She states that she has appointment with [facility] for proteinuria. Mother states that she does have hypertension. Other than the signaling for chest pain and crying no other symptoms. REVIEW OF SYSTEMS: Constitutional: Denies fever, chills. Eyes: Denies eye pain Ears, Nose, Mouth, & Throat: Denies earache Cardiovascular: Positive for chest pain Respiratory: Denies shortness of breath Gastrointestinal: Denies Nausea, vomiting, diarrhea, hematochezia. Genitourinary: Denies hematuria Skin:Denies a rash MSK: Denies joint pain Neurological: Denies blurred vision Psychiatric: Denies depression PAST MEDICAL HISTORY: As per history of present illness and as reviewed below otherwise noncontributory. SURGICAL HISTORY: As per history of present illness and as reviewed below otherwise noncontributory. LMP: Currently on her period SOCIAL HISTORY: As per history of present illness and as reviewed below otherwise noncontributory. FAMILY HISTORY: As per history of present illness and as reviewed below otherwise noncontributory. EXAMINATION OF ORGAN SYSTEMS/BODY AREAS: Constitutional: Blood pressure is 152/96, heart rate 103, respiratory rate 18 with an oxygen saturation 97% on room air. Temperature 36.8 General: Well-appearing, does not appear to be in acute distress. Psychiatric: Appropriate mood and affect. Eyes: No scleral icterus or conjunctival erythema ENMT: Moist mucous membranes. No pharyngeal erythema Cardiovascular: Regular, rate, and rhythm. No gallops, murmurs, or rubs. Bilateral upper extremity pulses symmetric and intact. No peripheral edema. No JVD. Respiratory: Lungs clear to auscultation bilaterally. No wheezes, rales, or rhonchi. Gastrointestinal: Soft, non-tender, non-distended. Normoactive bowel sounds Genitourinary: No suprapubic tenderness Musculoskeletal: Normal range of motion. Skin: No lesions or abrasions. Neurological: Alert, GCS 15 MEDICAL DECISION MAKING AND COURSE IN THE ED WITH INTERPRETATION/REVIEW OF DIAGNOSTIC STUDIES: This is a 20-year-old woman with a past medical history of autism, unspecified disorder of mitochondrial metabolism, functional urinary incontinence, hypertension and tachycardia who comes to the emergency department with reported chest pain who is mildly tachycardic and mildly hypertensive with normal saturations who appears comfortable without any overt abnormalities on examination. We did obtain an EKG which appears to be unchanged from prior. It is uncertain as to what is causing the chest pain however differential includes pneumonia, ACS. Will obtain a cardiac work-up and a urinalysis. In the patient's booklet given the patient's mitochondrial disease they recommend fluid hydration therefore we will provide the patient with 1 L of normal saline bolus. Given the tachycardia that is being worked up outpatient will obtain TSH and T4. Patient's mother did have a report from the Holter monitor and it did state that the average heart rate was 100 without any pauses with 3 PVCs and no PACs. Time: 1920 Twelve-lead EKG interpreted by myself. Sinus tachycardia at a rate of 109 beats per minute. Normal axis. IA interval is 167 ms. QRS duration is [address] segments are normal without elevations or depressions. No T wave inversions no Q waves present. Hypertrophy not noted. No changes demonstrated from prior EKG dated January 22, 2021. Interpretation: Sinus tachycardia Laboratory: CBC is unremarkable. CMP reveals hypoalbuminemia at 3.1. TSH is 2.46, free T4 0.91. Urinalysis was a clean catch and was negative for leukocyte esterase, negative for nitrites, and large for blood. 100 protein interpretation: Proteinuria The radiological images were viewed by myself along with reading the report from the radiologist. Chest x-ray does not reveal any acute cardiopulmonary process. During the patient's stay in the emergency department the patient did not have any episodes of crying or signaling that she did have chest pain. The patient's tachycardia did resolve hypertension did improve. At this time we did obtain a repeat EKG which is unchanged from prior. I did discuss with mother the results. I discussed that at this time she would be stable for discharge. I encouraged her to continue to follow-up with [facility] and to return if she has any new or worsening symptoms. She was amenable to discharge at this time and had no further questions. Time: 2343 Twelve-lead EKG interpreted by myself. Normal sinus rhythm at a rate of 78beats per minute. Normal axis. IA interval is 180 ms. QRS duration is [address] segments are normal without elevations or depressions. No T wave inversions no Q waves present. Hypertrophy not noted. No changes demonstrated from prior EKG dated 01/22/2021. Interpretation: Sinus rhythm DISPOSITION: The patient was discharged home in stable condition. The patient will follow up with [facility] at her scheduled appointment CONDITION: Good PROCEDURES: None FINAL IMPRESSION(S)/DIAGNOSES: 1. Acute chest pain 2. Tachycardia, resolved Jose Ramon Ferreira M.D. - Related Data Allergies Allergy/AdvReac Type Severity Reaction Status Date / Time adhesive Allergy Rash Verified 01/22/21 14:13 Home Meds: Home Meds ALPRAZolam [Xanax] 0.05 mg PO ASDIRECTED PRN 07/15/15 [History] guanFACINE HCl [Intuniv] 2 mg PO DAILY 07/15/15 [History] lamoTRIgine [Lamictal] 350 mg PO BID 07/15/15 [History] EPINEPHrine [Epipen 2-Dayron] 1 injection INJECT ASDIRECTED PRN 09/20/15 [History] Gamma-Aminobutyric Acid [Aminobutyric Acid] 12 gram SQ ASDIRECTED 09/20/15 [History] diazePAM [Diastat Rectal Gel] 5 mg RECTAL ASDIRECTED PRN 09/20/15 [History] metFORMIN HCl [Metformin HCl] 1,000 mg PO BID 09/20/15 [History] QUEtiapine [SEROquel] 150 mg PO BEDTIME 02/01/16 [History] Multivit,Calc,Mins/Iron/Folic [Women's Daily Formula Caplet] 2 each PO DAILY 09/21/16 [History] PARoxetine HCL [Paroxetine HCl] 40 mg PO DAILY 09/21/16 [History] Ubidecarenone [COQ-10] 30 mg PO DAILY 09/21/16 [History] Norgestimate-Ethinyl Estradiol [Ortho Tri-Cyclen Lo Tablet] 1 tab PO DAILY 05/15/18 [History] LORazepam [Ativan] 1 mg PO ASDIRECTED PRN 09/21/20 [History] Lubiprostone [Amitiza] 8 mg PO BID 09/21/20 [History] Gabapentin [Neurontin] 300 mg PO TID 01/16/21 [History] risperiDONE [Risperdal] 2 mg PO DAILY 01/16/21 [History] Past Medical History HEENT History: Reports: Other (See Below) Other HEENT History: eye surgery 2 times Cardiovascular History: Reports: None Respiratory History: Reports: Asthma Other Respiratory History: allergy induced asthma Gastrointestinal History: Reports: Chronic Constipation, GERD Other Gastrointestinal History: Fissures Genitourinary History: Reports: Other (See Below) Other Genitourinary History: bilateral ovarian surgery 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: Reports: Other (See Below) Other 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: Debaulking of ovaries, oophorectomy Musculoskeletal History: Reports: Other (See Below) Other Musculoskeletal History: mulitple lower leg surgery Neurological History: Reports: Seizure, Other (See Below) Other Neuro History: focal epilepsy Psychiatric History: Reports: ADHD, Anxiety, Autism, Bipolar, Other (See Below) Other Psychiatric History: "Cannot diagnose, but suspect depression" per mother Jojo Endocrine/Metabolic History: Reports: Other (See Below) Other Endocrine/Metabolic History: Mother reports "Metformin for Hormone treatment" Hematologic History: Reports: None Immunologic History: Reports: Immunosuppression, Other (See Below) Other Immunologic History: Gammagard injection weekly Sundays Oncologic (Cancer) History: Reports: None Dermatologic History: Reports: None - Infectious Disease History Infectious Disease History: Reports: None - Past Surgical History HEENT Surgical History: Reports: None Cardiovascular Surgical History: Reports: None Respiratory Surgical History: Reports: None GI Surgical History: Reports: Appendectomy, Other (See Below) Other GI Surgeries/Procedures: exploratory sugery Female Surgical History: Reports: Other (See Below) Other Female Surgeries/Procedures: bilateral ovaries removed, ovarian cyst removal at Endocrine Surgical History: Reports: None Neurological Surgical History: Reports: None Musculoskeletal Surgical History: Reports: Other (See Below) Other Musculoskeletal Surgeries/Procedures:: plate i[ins removed from right and plate in hip and 5-6 screws at knee on left, bob of the patella on bilat knees Oncologic Surgical History: Reports: None Dermatological Surgical History: Reports: None Social & Family History - Family History Family Medical History: No Pertinent Family History - Caffeine Use Caffeine Use: Reports: None - Recreational Drug Use Recreational Drug Use: No ED ROS GENERAL - Review of Systems Review Of Systems: See Below ED EXAM, GENERAL - Physical Exam Exam: See Below Course - Vital Signs Last Recorded V/S: Last Vital Signs Temp 36.8 C 02/17/21 19:24 Pulse 88 02/18/21 00:05 Resp 18 02/18/21 00:05 BP 137/87 02/18/21 00:05 Pulse Ox 98 02/18/21 00:05 - Orders/Labs/Meds Labs: Laboratory Tests 02/17/21 02/17/21 02/17/21 Range/Units 19:58 20:25 20:25 WBC 6.08 (4.0-11.0) K/uL RBC 4.53 (4.30-5.90) M/uL Hgb 13.1 (12.0-16.0) g/dL Hct 39.8 (36.0-46.0) % MCV 87.9 (80.0-98.0) fL MCH 28.9 (27.0-32.0) pg MCHC 32.9 (31.0-37.0) g/dL RDW Std Deviation 44.4 (28.0-62.0) fl RDW Coeff of [place] 14 (11.0-15.0) % Plt Count 350 (150-400) K/uL MPV 8.60 (7.40-12.00) fL Neut % (Auto) 51.3 (48.0-80.0) % Lymph % (Auto) 38.3 (16.0-40.0) % Will % (Auto) 9.4 (0.0-15.0) % Eos % (Auto) 0.8 (0.0-7.0) % Baso % (Auto) 0.2 (0.0-1.5) % Neut # (Auto) 3.1 (1.4-5.7) K/uL Lymph # (Auto) 2.3 (0.6-2.4) K/uL Will # (Auto) 0.6 (0.0-0.8) K/uL Eos # (Auto) 0.1 (0.0-0.7) K/uL Baso # (Auto) 0.0 (0.0-0.1) K/uL Nucleated RBC % 0.0 /100WBC Nucleated RBCs # 0 K/uL Sodium 140 (136-145) mmol/L Potassium 4.3 (3.5-5.1) mmol/L Chloride 103 (98-107) mmol/L Carbon Dioxide 28.5 (21.0-32.0) mmol/L BUN 16 (7.0-18.0) mg/dL Creatinine 0.8 (0.6-1.0) mg/dL Est Cr Clr Drug Dosing 97.67 mL/min Estimated GFR (MDRD) > 60.0 ml/min Glucose 106 (74-106) mg/dL Calcium 9.0 (8.5-10.1) mg/dL Total Bilirubin 0.2 (0.2-1.0) mg/dL AST 21 (15-37) IU/L ALT 33 (14-63) IU/L Alkaline Phosphatase 87 (46-116) U/L Troponin I < 0.050 (0.000-0.056) ng/mL Total Protein 7.9 (6.4-8.2) g/dL Albumin 3.1 L (3.4-5.0) g/dL Globulin 4.8 H (2.6-4.0) g/dL Albumin/Globulin Ratio 0.7 L (0.9-1.6) Free T4 0.91 (0.76-1.46) ng/dL TSH 3rd Generation 2.46 (0.52-4.13) uIU/mL Urine Color YELLOW Urine Appearance CLOUDY Urine pH 7.5 (5.0-8.0) Ur Specific [place] >= 1.030 (1.001-1.035) Urine Protein 100 H (NEGATIVE) mg/dL Urine Glucose (UA) NEGATIVE (NEGATIVE) mg/dL Urine Ketones NEGATIVE (NEGATIVE) mg/dL Urine Occult Blood LARGE H (NEGATIVE) Urine Nitrite NEGATIVE (NEGATIVE) Urine Bilirubin NEGATIVE (NEGATIVE) Urine Urobilinogen 0.2 (<2.0) EU/dL Ur Leukocyte Esterase NEGATIVE (NEGATIVE) Urine RBC 20-30 (0-2/HPF) Urine WBC 2-5 (0-5/HPF) Ur Epithelial Cells FEW (NONE-FEW) Amorphous Sediment MODERATE (NEGATIVE) Urine Bacteria FEW (NEGATIVE) Meds: Medications Discontinued Medications Generic Name Dose Route Start Last Admin Trade Name Ngoc PRN Reason Stop Dose Admin Heparin Sodium (Porcine) 500 units 02/18/21 00:05 02/18/21 00:17 Heparin Sodium 100 Units/Ml 5 Ml Syringe FLUSH 02/18/21 00:06 500 units ONETIME ONE Administration Sodium Chloride 1,000 mls @ 999 mls/hr 02/17/21 19:20 02/17/21 20:03 Normal Saline IV 02/17/21 20:20 999 mls/hr .BOLUS ONE Administration Departure - Departure Time of Disposition: 00:04 Disposition: Home, Self-Care 01 Condition: Fair Clinical Impression: Atypical chest pain, Proteinuria - Discharge Information *PRESCRIPTION DRUG MONITORING PROGRAM REVIEWED*: No *COPY OF PRESCRIPTION DRUG MONITORING REPORT IN PATIENT SARA: No Instructions: Nonspecific Chest Pain, Adult, [id number], Proteinuria Referrals: PCP,None [Primary Care Provider] - Forms: ED Department Discharge Additional Instructions: You evaluate today on an emergent basis. At this time your work-up is negative. As discussed with you I would like you to keep the appointment with [facility]. There was protein in her urine and it appears that you are currently undergoing work-up outpatient. If she has any worsening of her symptoms such as fever, chills, worsening chest pain, shortness of breath, inability to tolerate food please return to the emergency department. Please follow-up with primary care physician within 2 to 3 days. [facility] [address] [place] [id number] [facility] [address] [place] [address] The patient is informed of any results of their evaluation and diagnostic workup and all questions are answered. They are given discharge instructions and return precautions. The patient is stable for discharge. The patient states they understand and agree with the plan and that they will return if their symptoms get worse or if they have any new concerns. The following information is given to patients seen in the emergency department who are being discharged to home. This information is to outline your options for follow-up care. We provide all patients seen in our emergency department with a follow-up referral. The need for follow-up, as well as the timing and circumstances, are variable depending upon the specifics of your emergency department visit. If you don't have a primary care physician on staff, we will provide you with a referral. We always advise you to contact your personal physician following an emergency department visit to inform them of the circumstance of the visit and for follow-up with them and/or the need for any referrals to a consulting specialist. The emergency department will also refer you to a specialist when appropriate. This referral assures that you have the opportunity for follow-up care with a specialist. All of these measure are taken in an effort to provide you with optimal care, which includes your follow-up. Under all circumstances we always encourage you to contact your private physician who remains a resource for coordinating your care. When calling for follow-up care, please make the office aware that this follow-up is from your recent emergency room visit. If for any reason you are refused follow-up, please contact the [facility] Emergency Department at and asked to speak to the emergency department charge nurse. Sepsis Event Note (ED) - Evaluation Sepsis Screening Result: No Definite Risk - Focused Exam Vital Signs: Vital Signs Temp Pulse Resp BP Pulse Ox 02/18/21 00:05 88 18 137/87 98 02/17/21 23:28 82 18 149/93 H 96 02/17/21 22:54 80 18 138/71 96 02/17/21 19:24 36.8 C 103 H 18 152/96 H 97
[2021-02-18 00:06] VITALS: BP 137/87; PULSE 88
== END 2021-02-17 22:54 | disposition home or self-care (01) ==
LOC: MW.ED 19:12
DX: R07.89 Other chest pain (principal); R80.9 Proteinuria, unspecified; J45.909 Unspecified asthma, uncomplicated; G40.909 Epilepsy, unspecified, not intractable, without status epilepticus; I10 Essential (primary) hypertension; Z91.048 Other nonmedicinal substance allergy status; Z79.899 Other long term (current) drug therapy
CPT/HCPCS: 71045; 80053; 81001; 84439; 84443; 84484; 85025; 93005; 99285; J7030; 93010; 99283

== ENCOUNTER 2021-03-17 17:35 | Emergency (ER) | payer BC, MEDICAID ==
[2021-03-17 17:48] VITALS: BP 131/79; PULSE 94
--- NOTE | 2021-03-17 17:53 | EDM.PDOC ---
ED HPI GENERAL MEDICAL PROBLEM - General Chief Complaint: Lower Extremity Injury/Pain Stated Complaint: FALL, LT ANKLE SWELLING Time Seen by Provider: 03/17/21 17:47 - History of Present Illness INITIAL COMMENTS - FREE TEXT/NARRATIVE: 20-year-old female history of multiple medical problems presenting today for left foot and ankle pain. Patient tripped and fell recently and since then has been complaining of pain in the left foot. No other injury or complaints no head trauma. Pain worsens with ambulation. - Related Data Allergies Allergy/AdvReac Type Severity Reaction Status Date / Time adhesive Allergy Rash Verified 03/17/21 17:44 Home Meds: Home Meds ALPRAZolam [Xanax] 0.05 mg PO ASDIRECTED PRN 07/15/15 [History] guanFACINE HCl [Intuniv] 2 mg PO DAILY 07/15/15 [History] lamoTRIgine [Lamictal] 350 mg PO BID 07/15/15 [History] EPINEPHrine [Epipen 2-Dayron] 1 injection INJECT ASDIRECTED PRN 09/20/15 [History] Gamma-Aminobutyric Acid [Aminobutyric Acid] 12 gram SQ ASDIRECTED 09/20/15 [History] diazePAM [Diastat Rectal Gel] 5 mg RECTAL ASDIRECTED PRN 09/20/15 [History] metFORMIN HCl [Metformin HCl] 1,000 mg PO BID 09/20/15 [History] QUEtiapine [SEROquel] 150 mg PO BEDTIME 02/01/16 [History] Multivit,Calc,Mins/Iron/Folic [Women's Daily Formula Caplet] 2 each PO DAILY 09/21/16 [History] PARoxetine HCL [Paroxetine HCl] 40 mg PO DAILY 09/21/16 [History] Ubidecarenone [COQ-10] 30 mg PO DAILY 09/21/16 [History] Norgestimate-Ethinyl Estradiol [Ortho Tri-Cyclen Lo Tablet] 1 tab PO DAILY 05/15/18 [History] LORazepam [Ativan] 1 mg PO ASDIRECTED PRN 09/21/20 [History] Lubiprostone [Amitiza] 8 mg PO BID 09/21/20 [History] Gabapentin [Neurontin] 300 mg PO TID 01/16/21 [History] risperiDONE [Risperdal] 2 mg PO DAILY 01/16/21 [History] atenoloL [Atenolol] 12.5 mg PO BID 03/17/21 [History] Past Medical History HEENT History: Reports: Other (See Below) Other HEENT History: eye surgery 2 times Cardiovascular History: Reports: None, Hypertension Respiratory History: Reports: Asthma Other Respiratory History: allergy induced asthma Gastrointestinal History: Reports: Chronic Constipation, GERD Other Gastrointestinal History: Fissures Genitourinary History: Reports: Other (See Below) Other Genitourinary History: bilateral ovarian surgery 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: Reports: Other (See Below) Other 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: Debaulking of ovaries, oophorectomy Musculoskeletal History: Reports: Other (See Below) Other Musculoskeletal History: mulitple lower leg surgery Neurological History: Reports: Seizure, Other (See Below) Other Neuro History: focal epilepsy Psychiatric History: Reports: ADHD, Anxiety, Autism, Bipolar, Other (See Below) Other Psychiatric History: "Cannot diagnose, but suspect depression" per mother Jojo Endocrine/Metabolic History: Reports: Other (See Below) Other Endocrine/Metabolic History: Mother reports "Metformin for Hormone treatment" Hematologic History: Reports: None Immunologic History: Reports: Immunosuppression, Other (See Below) Other Immunologic History: Gammagard injection weekly Sundays Oncologic (Cancer) History: Reports: None Dermatologic History: Reports: None - Infectious Disease History Infectious Disease History: Reports: None - Past Surgical History HEENT Surgical History: Reports: None Cardiovascular Surgical History: Reports: None Respiratory Surgical History: Reports: None GI Surgical History: Reports: Appendectomy, Other (See Below) Other GI Surgeries/Procedures: exploratory sugery Female Surgical History: Reports: Other (See Below) Other Female Surgeries/Procedures: bilateral ovaries removed, ovarian cyst removal at Endocrine Surgical History: Reports: None Neurological Surgical History: Reports: None Musculoskeletal Surgical History: Reports: Other (See Below) Other Musculoskeletal Surgeries/Procedures:: plate i[ins removed from right and plate in hip and 5-6 screws at knee on left, bob of the patella on bilat knees Oncologic Surgical History: Reports: None Dermatological Surgical History: Reports: None Social & Family History - Family History Family Medical History: No Pertinent Family History - Tobacco Use Tobacco Use Status *Q: Never Tobacco User - Caffeine Use Caffeine Use: Reports: None - Recreational Drug Use Recreational Drug Use: No Review of Systems - Review of Systems Review Of Systems: See Below Constitutional: Reports: No Symptoms Respiratory: Reports: No Symptoms Cardiovascular: Reports: No Symptoms Musculoskeletal: Reports: Other (Per HPI) Skin: Reports: No Symptoms ED EXAM, GENERAL - Physical Exam Exam: See Below Free Text/Narrative:: General Appearance: No acute distress, appears comfortable Skin: No rash HEENT: atraumatic, sclera anicteric, mucous membranes moist Neck: Normal range of motion Musculoskeletal: 2+ left DP and PT pulse, no proximal fibula tenderness, tenderness along the medial arch as well as the medial malleolus no other focal bony tenderness is appreciated no tenderness at the base of the fifth minimal swelling Neurologic: Awake, alert, no obvious deficits, moving all extremities Psychiatric: Appropriate, cooperative Course - Vital Signs Last Recorded V/S: Last Vital Signs Temp 97.9 F 03/17/21 17:45 Pulse 94 03/17/21 17:45 Resp 18 03/17/21 17:45 BP 131/79 03/17/21 17:45 Pulse Ox 95 03/17/21 17:45 - Orders/Labs/Meds Meds: Medications Discontinued Medications Generic Name Dose Route Start Last Admin Trade Name Ngoc PRN Reason Stop Dose Admin Acetaminophen 650 mg 03/17/21 18:07 03/17/21 18:09 Acetaminophen 325 Mg Tab PO 03/17/21 18:08 650 mg NOW ONE Administration Acetaminophen Confirm 03/17/21 18:06 Acetaminophen 325 Mg Tab Administered 03/17/21 18:07 Dose 650 mg .ROUTE .STK-MED ONE Departure - Departure Time of Disposition: 18:58 Disposition: Home, Self-Care 01 Condition: Good Clinical Impression: Foot sprain - Discharge Information *PRESCRIPTION DRUG MONITORING PROGRAM REVIEWED*: Not Applicable *COPY OF PRESCRIPTION DRUG MONITORING REPORT IN PATIENT SARA: Not Applicable Instructions: Foot Sprain, RICE Therapy for Routine Care of Injuries Referrals: Gogo Weller DO [Primary Care Provider] - 1 Week Forms: ED Department Discharge Additional Instructions: Her injury should heal over the next several days. You needs Tylenol or other [id number] pain medications to help with the discomfort. For the next 2 days ice and elevation will likely help the most. Sepsis Event Note (ED) - Evaluation Sepsis Screening Result: No Definite Risk - Focused Exam Vital Signs: Vital Signs Temp Pulse Resp BP Pulse Ox 03/17/21 17:45 97.9 F 94 18 131/79 95 - Assessment/Plan Assessment:: 20-year-old female presenting with signs and symptoms most consistent with ankle and midfoot sprain after fall as described. No other signs of injury no signs of proximal fibula fracture x-ray of the foot and ankle pending. XR's negative. Pt discharged with f/u.
[2021-03-17] MEDS ORDERED: Acetaminophen 325 MG Tab ONE (18:06)
[2021-03-17] MEDS ORDERED: Acetaminophen 325 MG Tab PO ONE (18:07)
--- NOTE | 2021-03-17 18:45 | CR ---
INDICATION: trip and fall, arch and medial ankle pain TECHNIQUE: Left ankle 2 views. COMPARISON: None. FINDINGS: Bones: Alignment is normal. No fractures or bone lesions. Joint spaces: Unremarkable. Soft tissues: Unremarkable. IMPRESSION: Unremarkable left ankle. Dictated by: Martell De La Cruz MD @ 03/17/2021 18:44:01 (Electronically Signed)
--- NOTE | 2021-03-17 18:47 | CR ---
INDICATION: trip and fall, arch and medial ankle pain TECHNIQUE: Left foot 2 views COMPARISON: None. FINDINGS: Bones: Alignment is normal. No fractures or bone lesions. Joint spaces: Unremarkable. Soft tissues: Unremarkable. IMPRESSION: Unremarkable left foot. Dictated by: Martell De La Cruz MD @ 03/17/2021 18:46:08 (Electronically Signed)
== END 2021-03-17 19:10 | disposition home or self-care (01) ==
LOC: MW.ED 17:35
DX: S93.602A Unspecified sprain of left foot, initial encounter (principal); J45.909 Unspecified asthma, uncomplicated; I10 Essential (primary) hypertension; R56.9 Unspecified convulsions; W01.0XXA Fall on same level from slipping, tripping and stumbling without subsequent striking against object, initial encounter
CPT/HCPCS: 73600; 73620; 99283; A9270; 99282

== ENCOUNTER 2022-09-18 07:14 | Day surgery (SDC) | payer BC, MEDICAID ==
[~2022-09-18 07:14] MED LIST: Lactated Ringers 1,000 ML IV SCH; Sodium Chloride 0.9% 10 ML Syringe FLUSH PRN; Sodium Chloride 0.9% 2.5 ML Syringe FLUSH PRN; Sodium Chloride 0.9% 20 ML SDV IV PRN; ceFAZolin 2 GM in Premix Bag 1 BAG IV ONE
[2022-09-18] MEDS ORDERED: Lidocaine 1% 20 ML MDV ONE ×2 (07:53→09:54)
[2022-09-18] MEDS ORDERED: Bupivacaine 0.5% 30 ML SDV ONE ×2 (07:53→09:54)
[2022-09-18] MEDS ORDERED: fentaNYL 50 MCG/ML SDV IVPUSH PRN (07:54)
[2022-09-18] MEDS ORDERED: Ondansetron 4 MG/2 ML SDV IVPUSH PRN (07:54)
[2022-09-18] MEDS ORDERED: Naloxone 0.4 MG/ML SDV IVPUSH PRN (07:54)
[2022-09-18] MEDS ORDERED: Morphine 2 MG/ML SYRINGE IVPUSH PRN (07:54)
[2022-09-18] MEDS ORDERED: Metoclopramide 10 MG/2 ML SDV IVPUSH PRN (07:54)
[2022-09-18] MEDS ORDERED: Albuterol 0.083% 2.5 MG/3 ML Neb Soln NEB PRN (07:54)
[2022-09-18] MEDS ORDERED: HYDROmorphone 1 MG/ML Syringe IVPUSH PRN (07:54)
[2022-09-18] MEDS ORDERED: Heparin Sodium 100 Units/ML 3 ML Syringe ONE (07:56)
[2022-09-18] MEDS ORDERED: Propofol 200 MG/20 ML SDV ONE (08:12)
[2022-09-18] MEDS ORDERED: fentaNYL 100 MCG/2 ML SDV ONE (08:14)
[2022-09-18] MEDS ORDERED: Water For Injection, Sterile 20 ML ONE (08:54)
[2022-09-18] MEDS ORDERED: Dexmedetomidine 200 MCG/2 ML SDV ONE (08:54)
[2022-09-18] MEDS ORDERED: Succinylcholine/Sod PF 100 MG/5 ML SYRINGE IV ONE (08:55)
[2022-09-18] MEDS ORDERED: Rocuronium Bromide 50 MG/5 ML Syringe ONE (08:55)
[2022-09-18] MEDS ORDERED: Magnesium Sulfate (4.06 MEQ/ML) 5 GM/10 ML SDV ONE (09:28)
[2022-09-18] MEDS ORDERED: Dexamethasone 4 MG/ML 5 ML MDV ONE (09:35)
[2022-09-18] MEDS ORDERED: Ondansetron 4 MG/2 ML SDV ONE (10:01)
[2022-09-18 10:45] VITALS: PULSE 96
[2022-09-18 11:27] VITALS: BP 136/74
== END 2022-09-18 11:23 | disposition home or self-care (01) ==
LOC: MW.SDS 07:14
PROVIDERS: ATTEND Surgery
DX: Z45.2 Encounter for adjustment and management of vascular access device (principal); I10 Essential (primary) hypertension; F41.9 Anxiety disorder, unspecified; F32.A Depression, unspecified; E66.9 Obesity, unspecified; Z79.899 Other long term (current) drug therapy; Z98.890 Other specified postprocedural states; Z90.49 Acquired absence of other specified parts of digestive tract; Z91.048 Other nonmedicinal substance allergy status
CPT/HCPCS: 36561; 36590; 71045; 76000; C1788; J0330; J0690; J1100; J1642; J2405; J2704; J3010; J3475; J3490; J7120; 00532

== ENCOUNTER 2022-12-26 12:51 | Emergency (ER) | payer BC, MEDICAID ==
[2022-12-26 13:49] VITALS: BP 135/73; PULSE 99
== END 2022-12-26 14:50 | disposition home or self-care (01) ==
LOC: MW.ED 12:51
DX: S89.91XA Unspecified injury of right lower leg, initial encounter (principal); I10 Essential (primary) hypertension; E66.9 Obesity, unspecified; Z68.33 Body mass index [BMI] 33.0-33.9, adult; Z91.048 Other nonmedicinal substance allergy status; Z79.899 Other long term (current) drug therapy; Z79.84 Long term (current) use of oral hypoglycemic drugs; Z79.82 Long term (current) use of aspirin; Z90.49 Acquired absence of other specified parts of digestive tract; W00.0XXA Fall on same level due to ice and snow, initial encounter
CPT/HCPCS: 73562-26-RT; 73562-RT; 99283

== ENCOUNTER 2023-02-05 18:03 | Emergency (ER) | payer BC, MEDICAID ==
[2023-02-05] MEDS ORDERED: Sodium Chloride 0.9% 2.5 ML Syringe FLUSH PRN (19:30)
[2023-02-05] MEDS ORDERED: Sodium Chloride 0.9% 10 ML Syringe FLUSH PRN (19:30)
[2023-02-05] MEDS ORDERED: Heparin Sodium 10 Units/ML 5 ML Syringe FLUSH STA (19:45)
[2023-02-05] MEDS ORDERED: Heparin Sodium 100 Units/ML 3 ML Syringe ONE (19:55)
[2023-02-05] MEDS ORDERED: Heparin Sodium 100 Units/ML 3 ML Syringe FLUSH STA (20:16)
[2023-02-05] MEDS ORDERED: Acetaminophen 500 MG Tab PO ONE (20:31)
[2023-02-05 20:43] LABS: CARBON DIOXIDE,CO2 27.8 mmol/L (21.0-32.0); POTASSIUM,K 4.3 mmol/L (3.5-5.1)
[2023-02-05] MEDS ORDERED: predniSONE 20 MG Tab PO ONE (21:38)
[2023-02-05 22:20] VITALS: BP 132/96; PULSE 81
== END 2023-02-05 22:01 | disposition home or self-care (01) ==
LOC: MW.ED 18:03
DX: L23.9 Allergic contact dermatitis, unspecified cause (principal); I12.9 Hypertensive chronic kidney disease with stage 1 through stage 4 chronic kidney disease, or unspecified chronic kidney disease; N18.9 Chronic kidney disease, unspecified; M19.90 Unspecified osteoarthritis, unspecified site; E66.9 Obesity, unspecified; Z68.30 Body mass index [BMI] 30.0-30.9, adult; Z91.048 Other nonmedicinal substance allergy status; Z79.82 Long term (current) use of aspirin; Z79.899 Other long term (current) drug therapy; Z79.84 Long term (current) use of oral hypoglycemic drugs
CPT/HCPCS: 36415; 80053; 85025; 85652; 86140; 99283; A9270; J1642

== ENCOUNTER 2023-06-19 20:17 | Emergency (ER) | payer BC, MEDICAID ==
[2023-06-19 22:51] LABS: BASOPHILS PERCENT AUTO 0.2 % (0.0-1.5); EOSINOPHILS ABSOLUTE AUTO 0.1 K/uL (0.0-0.7); EOSINOPHILS PERCENT AUTO 0.8 % (0.0-7.0); HEMATOCRIT 39.4 % (36.0-46.0); HEMOGLOBIN 13.2 g/dL (12.0-16.0); LYMPHOCYTES ABSOLUTE AUTO 3.2 K/uL (0.6-2.4); LYMPHOCYTES PERCENT AUTO 38.1 % (16.0-40.0); MEAN CORPUSCULAR HGB CONC 33.5 g/dL (31.0-37.0); MEAN CORPUSCULAR VOLUME 89.5 fL (80.0-98.0); MONOCYTES ABSOLUTE AUTO 0.6 K/uL (0.0-0.8); MONOCYTES PERCENT AUTO 7.5 % (0.0-15.0); NEUTROPHILS ABSOLUTE AUTO 4.5 K/uL (1.4-5.7); NEUTROPHILS PERCENT AUTO 53.4 % (48.0-80.0); NRBC ABSOLUTE 0 K/uL; PLATELET COUNT,PLT 339 K/uL (150-400); WHITE BLOOD CELL COUNT,WBC 8.39 K/uL (4.0-11.0)
[2023-06-19 23:28] LABS: A/G RATIO 0.7 (0.9-1.6); ALANINE AMINOTRANSFERASE,ALT 26 IU/L (14-63); ALKALINE PHOSPHATASE 91 U/L (46-116); ASPARTATE AMNIOTRANSFERASE,AST 23 IU/L (15-37); BILIRUBIN TOTAL 0.2 mg/dL (0.2-1.0); BLOOD UREA NITROGEN,BUN 9 mg/dL (7.0-18.0); CALCIUM 9.1 mg/dL (8.5-10.1); CARBON DIOXIDE,CO2 27.6 mmol/L (21.0-32.0); CHLORIDE,CL 103 mmol/L (98-107); CREATININE 0.7 mg/dL (0.6-1.0); EST CRCL DRUG DOSING (CG) 91.32 mL/min; GLUCOSE RANDOM 92 mg/dL (74-106); POTASSIUM,K 4.3 mmol/L (3.5-5.1); PROTEIN TOTAL,TP 7.1 g/dL (6.4-8.2); SODIUM,NA 138 mmol/L (136-145)
[2023-06-19 23:36] LABS: ESTIMATED GFR 126 mL/min (>60)
[2023-06-20 00:10] VITALS: BP 132/80; PULSE 70
== END 2023-06-20 00:10 | disposition home or self-care (01) ==
LOC: MW.ED 20:17
DX: R07.9 Chest pain, unspecified (principal); I10 Essential (primary) hypertension; J45.909 Unspecified asthma, uncomplicated; K21.9 Gastro-esophageal reflux disease without esophagitis; E66.9 Obesity, unspecified; Z91.09 Other allergy status, other than to drugs and biological substances; Z79.82 Long term (current) use of aspirin; Z79.899 Other long term (current) drug therapy; Z68.31 Body mass index [BMI] 31.0-31.9, adult
CPT/HCPCS: 36415; 71045; 71045-26; 80053; 84484; 85025; 93005; 93010; 99285